=== PATIENT | female | born 2000 | race Caucasian/White ===

== ENCOUNTER 2025-06-18 14:03 | Outpatient (CLI) | payer BC, SELFPAY ==
[2025-06-21 03:53] LABS: HPV Source Cervical
[2025-06-25 09:26] LABS: Pap Test Digital Imaging Done
== END 2025-06-18 14:04 | disposition home or self-care (01) ==
PROVIDERS: Visit Provider Advanced Practice Midwife
DX: Z12.4 Encounter for screening for malignant neoplasm of cervix (principal); Z11.51 Encounter for screening for human papillomavirus (HPV)
CPT/HCPCS: 87624; 87625; 88141; 88142; 88175